=== PATIENT | female | born 1965 | race Hispanic/Latino ===

== ENCOUNTER 2024-07-05 12:35 | Inpatient (IN) | payer OTHER ==
[~2024-07-05] VITALS: Ht 167.6 cm; Wt 71.7 kg
[~2024-07-05 12:35] MED LIST: APIX5TAB PO; ASPI-888 PO; BRIM5DRO OP; BRIN15DR4 OP; LEVO75TA6 PO; LIOT5TAB11 PO; METO100T14 PO; METO10TA41 PO; NIFE-78 PO
[2024-07-05] MEDS: acetaMINOPHEN 500 MG TABLET ONE (13:20)
[2024-07-05] MEDS: acetaMINOPHEN 500 MG TABLET PO ONE (13:20)
[2024-07-05] MEDS ORDERED: acetaMINOPHEN 325 MG TAB PO ONE (13:30)
[2024-07-05 13:36] LABS: HEMATOCRIT 26.4 % (36-48); MEAN CORPUSCULAR HEMOGLOBIN 30.5 pg (27.0-33.0); MEAN CORPUSCULAR HGB CONC 31.1 g/dL (32.0-36.0); MEAN CORPUSCULAR VOLUME 98.1 fL (79-99); PLATELET COUNT (AUTO) 187 K/uL (130-400); RED BLOOD CELL COUNT(AUTO) 2.69 MIL/uL (4.00-5.50); RED CELL DISTRIBUTION WIDTH 15.2 % (11.0-15.5); WHITE BLOOD COUNT (AUTO) 13.9 K/uL (4.8-10.8)
[2024-07-05 13:39] LABS: BASOPHILS # (AUTO) 0.06 K/uL (0.00-0.20); BASOPHILS % (AUTO) 0.4 % (0.0-5.0); IMMATURE GRANULOCYTE ABSOLUTE 0.07 K/uL (0-1); LYMPHOCYTES # (AUTO) 0.5 K/uL (1.0-4.8); LYMPHOCYTES % (AUTO) 3.5 % (21.0-51.0); MONOCYTES # (AUTO) 0.6 K/uL (0.1-1.0); MONOCYTES % (AUTO) 4.3 % (3.0-13.0); NEUTROPHILS # (AUTO) 12.2 K/uL (1.8-7.7); NEUTROPHILS % (AUTO) 91.3 % (40.0-77.0)
[2024-07-05 13:44] LABS: POTASSIUM 5.8 mmol/L (3.5-5.1)
[2024-07-05 13:48] LABS: ALBUMIN 3.1 g/dL (3.5-5.0); BILIRUBIN,TOTAL 1.9 mg/dL (0.2-1.0); TOTAL PROTEIN, SERUM 7.5 g/dL (6.0-8.3)
[2024-07-05 13:50] LABS: CREATININE 10.3 mg/dL (0.5-1.0)
[2024-07-05] MEDS: ZOSYN 3.375GM +NS 50ML IV ONE (14:00)
[2024-07-05] MEDS ORDERED: VANCOMYCIN PROTOCOL PER PHARMACY IV SCH (14:00)
[2024-07-05 14:07] LABS: SARS-CoV-2, RNA, NAAT NEGATIVE SARS CoV-2 (NEGATIVE)
[2024-07-05 14:12] LABS: INFLUENZA TYPE A Negative For Type A (NEGATIVE); INFLUENZA TYPE B Negative For Type B (NEGATIVE)
[2024-07-05] MEDS: VANCOMYCIN 1.25 GM/250 ML BAG 250 ML IV ONE (14:14)
[2024-07-05] MEDS ORDERED: VANCOMYCIN PROTOCOL PER PHARMACY IV PRN (17:30)
[2024-07-05] MEDS ORDERED: acetaMINOPHEN 325 MG TAB PO PRN (17:30)
[2024-07-05] MEDS: ZOSYN 3.375GM+NS 50ML 50 ML IV SCH (18:30)
[2024-07-05 19:26] VITALS: BP 139/70; PULSE 84; RESP 17; TEMP 98.3
[2024-07-05] MEDS: FAMOTIDINE 20MG VIAL IV SCH (20:23)
[2024-07-05 20:30] VITALS: O2SAT 97
[2024-07-05] MEDS: HEParin 5,000 UNIT VIAL SQ SCH (20:33)
[2024-07-05] MEDS: acetaMINOPHEN 325 MG TAB PO PRN (21:18)
[2024-07-05] MEDS: ONDANSETRON 4MG INJ IV PRN (23:04)
[2024-07-05] MEDS: morPHINE 2 MG SYG IM ONE (23:30)
[2024-07-06] VITALS (19 sets, daily range): BP systolic 104–149; BP diastolic 59–83; PULSE 65–120; RESP 16–20; TEMP 97.7–99.6; O2SAT 94–97
[2024-07-06 06:17] LABS: BASOPHILS # (AUTO) 0.09 K/uL (0.00-0.20); BASOPHILS % (AUTO) 0.9 % (0.0-5.0); EOSINOPHILS # (AUTO) 0.02 K/uL (0.00-0.70); EOSINOPHILS % (AUTO) 0.2 % (0.0-8.0); HEMATOCRIT 27.9 % (36-48); IMMATURE GRANULOCYTE ABSOLUTE 0.04 K/uL (0-1); LYMPHOCYTES # (AUTO) 0.8 K/uL (1.0-4.8); LYMPHOCYTES % (AUTO) 7.7 % (21.0-51.0); MEAN CORPUSCULAR HEMOGLOBIN 30.9 pg (27.0-33.0); MEAN CORPUSCULAR HGB CONC 30.8 g/dL (32.0-36.0); MEAN CORPUSCULAR VOLUME 100.4 fL (79-99); MONOCYTES # (AUTO) 0.5 K/uL (0.1-1.0); MONOCYTES % (AUTO) 4.9 % (3.0-13.0); NEUTROPHILS # (AUTO) 8.5 K/uL (1.8-7.7); NEUTROPHILS % (AUTO) 85.9 % (40.0-77.0); PLATELET COUNT (AUTO) 178 K/uL (130-400); RED BLOOD CELL COUNT(AUTO) 2.78 MIL/uL (4.00-5.50); RED CELL DISTRIBUTION WIDTH 15.2 % (11.0-15.5); WHITE BLOOD COUNT (AUTO) 9.9 K/uL (4.8-10.8)
[2024-07-06 06:41] LABS: ALBUMIN 2.9 g/dL (3.5-5.0); BILIRUBIN,TOTAL 1.5 mg/dL (0.2-1.0); TOTAL PROTEIN, SERUM 7.9 g/dL (6.0-8.3)
[2024-07-06 06:59] LABS: CREATININE 11.3 mg/dL (0.5-1.0)
[2024-07-06 07:00] LABS: POTASSIUM 6.9 mmol/L (3.5-5.1)
[2024-07-06 07:28] LABS: ERYTHROCYTE SEDIMENTATION RATE 77 MM/HR (0-30)
[2024-07-06] MEDS: levoTHYROxine 75 MCG TABLET PO SCH (07:47)
[2024-07-06] MEDS: ASPIRIN 81 MG EC TAB PO SCH (08:25)
[2024-07-06] MEDS: metoPROLOL tartRATE 50 MG TAB PO SCH (08:25)
[2024-07-06] MEDS: NIFEDIPINE ER 30 MG TAB PO SCH (08:25)
[2024-07-06] MEDS: TIMOLOL OP SCH (08:26)
[2024-07-06] MEDS: BRIMONIDINE TARTRATE OP SCH (08:26)
[2024-07-06] MEDS ORDERED: LACE ASSESSMENT (SCORE > 11) MISC SCH (12:30)
[2024-07-06] MEDS: metoCLOPRAmide 10 MG/2 ML VIAL IVP PRN (12:52)
[2024-07-07] VITALS (21 sets, daily range): BP systolic 111–144; BP diastolic 54–87; PULSE 65–128; RESP 14–20; TEMP 97.5–98.8; O2SAT 97–100
[2024-07-07 05:24] LABS: BASOPHILS # (AUTO) 0.07 K/uL (0.00-0.20); EOSINOPHILS # (AUTO) 0.23 K/uL (0.00-0.70); EOSINOPHILS % (AUTO) 3.3 % (0.0-8.0); HEMATOCRIT 26.3 % (36-48); IMMATURE GRANULOCYTE ABSOLUTE 0.03 K/uL (0-1); LYMPHOCYTES # (AUTO) 0.8 K/uL (1.0-4.8); LYMPHOCYTES % (AUTO) 11.6 % (21.0-51.0); MEAN CORPUSCULAR HEMOGLOBIN 30.8 pg (27.0-33.0); MEAN CORPUSCULAR HGB CONC 31.2 g/dL (32.0-36.0); MEAN CORPUSCULAR VOLUME 98.9 fL (79-99); MONOCYTES # (AUTO) 0.6 K/uL (0.1-1.0); MONOCYTES % (AUTO) 8.3 % (3.0-13.0); NEUTROPHILS # (AUTO) 5.3 K/uL (1.8-7.7); NEUTROPHILS % (AUTO) 75.4 % (40.0-77.0); PLATELET COUNT (AUTO) 173 K/uL (130-400); RED BLOOD CELL COUNT(AUTO) 2.66 MIL/uL (4.00-5.50); RED CELL DISTRIBUTION WIDTH 15.1 % (11.0-15.5)
[2024-07-07 05:46] LABS: MAGNESIUM 1.9 mg/dL (1.80-2.40); POTASSIUM 4.3 mmol/L (3.5-5.1); VANCOMYCIN LEVEL 14.2 mcg/mL (20.0-30.0)
[2024-07-07 06:10] LABS: CREATININE 8.7 mg/dL (0.5-1.0)
[2024-07-07] MEDS: levoTHYROxine 75 MCG TABLET PO SCH (06:16)
[2024-07-07] MEDS: INSULIN humuLIN R 100 UNIT/ML 3ML SQ SCH (11:30)
[2024-07-07] MEDS: 0.9%NACL 1000ML 1,000 ML IV SCH (15:59)
[2024-07-07] MEDS ORDERED: VANCOMYCIN 500MG+NS 100ML 100 ML IV SCH (16:00)
[2024-07-07] MEDS: VANCOMYCIN 1G/250ML KIT 250 ML IV SCH (18:38)
[2024-07-07] MEDS: FAMOTIDINE 20MG VIAL IV SCH (22:36)
[2024-07-08] VITALS (7 sets, daily range): BP systolic 127–136; BP diastolic 57–71; PULSE 70–74; RESP 16–19; TEMP 98.1–98.7; O2SAT 97
[2024-07-08 04:35] LABS: BASOPHILS # (AUTO) 0.07 K/uL (0.00-0.20); BASOPHILS % (AUTO) 1.3 % (0.0-5.0); EOSINOPHILS # (AUTO) 0.22 K/uL (0.00-0.70); EOSINOPHILS % (AUTO) 4.2 % (0.0-8.0); HEMATOCRIT 25.9 % (36-48); IMMATURE GRANULOCYTE ABSOLUTE 0.03 K/uL (0-1); LYMPHOCYTES # (AUTO) 0.6 K/uL (1.0-4.8); LYMPHOCYTES % (AUTO) 12.1 % (21.0-51.0); MEAN CORPUSCULAR HEMOGLOBIN 29.6 pg (27.0-33.0); MEAN CORPUSCULAR HGB CONC 30.5 g/dL (32.0-36.0); MONOCYTES # (AUTO) 0.6 K/uL (0.1-1.0); MONOCYTES % (AUTO) 10.6 % (3.0-13.0); NEUTROPHILS # (AUTO) 3.8 K/uL (1.8-7.7); NEUTROPHILS % (AUTO) 71.2 % (40.0-77.0); PLATELET COUNT (AUTO) 188 K/uL (130-400); RED BLOOD CELL COUNT(AUTO) 2.67 MIL/uL (4.00-5.50); RED CELL DISTRIBUTION WIDTH 14.9 % (11.0-15.5); WHITE BLOOD COUNT (AUTO) 5.3 K/uL (4.8-10.8)
[2024-07-08 04:56] LABS: CREATININE 6.2 mg/dL (0.5-1.0); POTASSIUM 3.7 mmol/L (3.5-5.1)
[2024-07-08] MEDS: ZOSYN 3.375GM+NS 50ML 50 ML IV SCH (09:18)
[2024-07-09] VITALS (7 sets, daily range): BP systolic 130–154; BP diastolic 58–67; PULSE 67–77; RESP 16–20; TEMP 98–98.6; O2SAT 93–94
[2024-07-09] MEDS: guaiFENesin-DM 200/20MG 10ML PO PRN (01:22)
[2024-07-09 05:53] LABS: BASOPHILS # (AUTO) 0.08 K/uL (0.00-0.20); BASOPHILS % (AUTO) 1.4 % (0.0-5.0); EOSINOPHILS # (AUTO) 0.28 K/uL (0.00-0.70); HEMATOCRIT 26.1 % (36-48); IMMATURE GRANULOCYTE ABSOLUTE 0.04 K/uL (0-1); LYMPHOCYTES % (AUTO) 17.3 % (21.0-51.0); MEAN CORPUSCULAR HEMOGLOBIN 30.3 pg (27.0-33.0); MEAN CORPUSCULAR HGB CONC 30.7 g/dL (32.0-36.0); MEAN CORPUSCULAR VOLUME 98.9 fL (79-99); MONOCYTES # (AUTO) 0.7 K/uL (0.1-1.0); MONOCYTES % (AUTO) 13.1 % (3.0-13.0); NEUTROPHILS # (AUTO) 3.5 K/uL (1.8-7.7); NEUTROPHILS % (AUTO) 62.5 % (40.0-77.0); NUCLEATED RED BLOOD CELLS 0.5 % (0.0-0.19); PLATELET COUNT (AUTO) 176 K/uL (130-400); RED BLOOD CELL COUNT(AUTO) 2.64 MIL/uL (4.00-5.50); WHITE BLOOD COUNT (AUTO) 5.6 K/uL (4.8-10.8)
[2024-07-09 05:57] LABS: POTASSIUM 3.6 mmol/L (3.5-5.1)
[2024-07-09 06:03] LABS: CREATININE 8.3 mg/dL (0.5-1.0)
[2024-07-10] VITALS (35 sets, daily range): BP systolic 136–192; BP diastolic 56–94; PULSE 70–83; RESP 14–21; TEMP 97.5–98.8; O2SAT 94–97
[2024-07-10 05:34] LABS: BASOPHILS # (AUTO) 0.05 K/uL (0.00-0.20); BASOPHILS % (AUTO) 0.8 % (0.0-5.0); HEMATOCRIT 29.4 % (36-48); LYMPHOCYTES # (AUTO) 0.9 K/uL (1.0-4.8); LYMPHOCYTES % (AUTO) 15.7 % (21.0-51.0); MEAN CORPUSCULAR HEMOGLOBIN 30.3 pg (27.0-33.0); MEAN CORPUSCULAR HGB CONC 30.6 g/dL (32.0-36.0); MONOCYTES # (AUTO) 0.6 K/uL (0.1-1.0); MONOCYTES % (AUTO) 9.7 % (3.0-13.0); NEUTROPHILS % (AUTO) 67.1 % (40.0-77.0); PLATELET COUNT (AUTO) 209 K/uL (130-400); RED BLOOD CELL COUNT(AUTO) 2.97 MIL/uL (4.00-5.50); RED CELL DISTRIBUTION WIDTH 15.1 % (11.0-15.5)
[2024-07-10 05:49] LABS: PHOSPHORUS 4.7 mg/dL (2.5-4.9); POTASSIUM 3.7 mmol/L (3.5-5.1); VANCOMYCIN LEVEL 25.1 mcg/mL (20.0-30.0)
[2024-07-10 05:59] LABS: CREATININE 9.6 mg/dL (0.5-1.0)
[2024-07-10] MEDS ORDERED: PHENYLEPHRINE HCL 10 MG/ML 1ML VIAL IV ONE (08:04)
[2024-07-10] MEDS ORDERED: proPOFol 10 MG/ML 20ML VIAL IV ONE (08:04)
[2024-07-10] MEDS ORDERED: LIDOCAINE PF 100MG/5ML (2%) SYRINGE 5ML ONE (08:05)
[2024-07-10] MEDS: IpraTROPium/alBUTERol SULFATE 3 ML SOLUTION IH ONE ×2 (09:13→09:15)
[2024-07-10] MEDS ORDERED: IpraTROPium/alBUTERol SULFATE 3 ML SOLUTION IH PRN (10:00)
[2024-07-10 10:21] LABS: HEPATITIS B SURFACE ANTIBODY Positive (Reactive); HEPATITIS B SURFACE ANTIGEN Non-Reactive (Nonreactive)
[2024-07-10 10:22] LABS: HEPATITIS B CORE AB TOTAL Non-Reactive (Nonreactive); HEPATITIS C ANTIBODY Non-Reactive (Nonreactive)
[2024-07-10] MEDS: 0.9%NACL 1000ML 1,000 ML IV ONE (14:51)
[2024-07-10] MEDS: PEG 3350/NA SULF,BICARB,CL/KCL 4000 ML SOLN PO ONE (16:28)
[2024-07-11] VITALS (17 sets, daily range): BP systolic 139–184; BP diastolic 72–90; PULSE 68–95; RESP 15–20; TEMP 96.8–98.8; O2SAT 97–98
[2024-07-11] MEDS: ZOSYN 3.375GM+NS 50ML 50 ML IV SCH (04:08)
[2024-07-11 06:01] LABS: BASOPHILS # (AUTO) 0.09 K/uL (0.00-0.20); BASOPHILS % (AUTO) 1.3 % (0.0-5.0); EOSINOPHILS # (AUTO) 0.39 K/uL (0.00-0.70); EOSINOPHILS % (AUTO) 5.6 % (0.0-8.0); HEMATOCRIT 32.9 % (36-48); IMMATURE GRANULOCYTE ABSOLUTE 0.12 K/uL (0-1); LYMPHOCYTES # (AUTO) 1.3 K/uL (1.0-4.8); LYMPHOCYTES % (AUTO) 18.8 % (21.0-51.0); MEAN CORPUSCULAR HEMOGLOBIN 30.2 pg (27.0-33.0); MEAN CORPUSCULAR HGB CONC 31.3 g/dL (32.0-36.0); MEAN CORPUSCULAR VOLUME 96.5 fL (79-99); MONOCYTES # (AUTO) 0.8 K/uL (0.1-1.0); MONOCYTES % (AUTO) 10.8 % (3.0-13.0); NEUTROPHILS # (AUTO) 4.3 K/uL (1.8-7.7); NEUTROPHILS % (AUTO) 61.8 % (40.0-77.0); PLATELET COUNT (AUTO) 247 K/uL (130-400); RED BLOOD CELL COUNT(AUTO) 3.41 MIL/uL (4.00-5.50); RED CELL DISTRIBUTION WIDTH 14.8 % (11.0-15.5); WHITE BLOOD COUNT (AUTO) 6.9 K/uL (4.8-10.8)
[2024-07-11 06:14] LABS: CREATININE 6.5 mg/dL (0.5-1.0)
[2024-07-11] MEDS: hydrALAZine 20MG/ML VIAL IV ONE (08:46)
[2024-07-11] MEDS ORDERED: proPOFol 10 MG/ML 20ML VIAL IV ONE (11:27)
[2024-07-11] MEDS: LIDOCAINE HCL 2% VISCOUS 15 ML UDCUP PO ONE (14:01)
[2024-07-11] MEDS: FENTanyl CITRate PF 50 MCG/1 ML 2ML VIAL IVP ONE (14:01)
[2024-07-11] MEDS: MIDAZOLAM HCL 1 MG/ML 2ML VIAL IVP ONE ×2 (14:02→14:14)
[2024-07-11] MEDS: PANTOPRAZOLE 40 MG TAB DR PO SCH (14:51)
[2024-07-11] MEDS: LOPERAMIDE HCL 2 MG CAP PO PRN (20:42)
[2024-07-12] VITALS (14 sets, daily range): BP systolic 132–159; BP diastolic 65–82; PULSE 70–83; RESP 14–19; TEMP 97.2–99; O2SAT 93–98
[2024-07-12 05:55] LABS: BASOPHILS # (AUTO) 0.07 K/uL (0.00-0.20); BASOPHILS % (AUTO) 0.8 % (0.0-5.0); EOSINOPHILS # (AUTO) 0.37 K/uL (0.00-0.70); EOSINOPHILS % (AUTO) 4.2 % (0.0-8.0); HEMATOCRIT 32.2 % (36-48); IMMATURE GRANULOCYTE ABSOLUTE 0.12 K/uL (0-1); LYMPHOCYTES # (AUTO) 1.4 K/uL (1.0-4.8); LYMPHOCYTES % (AUTO) 15.8 % (21.0-51.0); MEAN CORPUSCULAR HEMOGLOBIN 29.6 pg (27.0-33.0); MEAN CORPUSCULAR HGB CONC 30.4 g/dL (32.0-36.0); MEAN CORPUSCULAR VOLUME 97.3 fL (79-99); MONOCYTES # (AUTO) 0.8 K/uL (0.1-1.0); NEUTROPHILS # (AUTO) 6.1 K/uL (1.8-7.7); NEUTROPHILS % (AUTO) 68.8 % (40.0-77.0); PLATELET COUNT (AUTO) 275 K/uL (130-400); RED BLOOD CELL COUNT(AUTO) 3.31 MIL/uL (4.00-5.50); RED CELL DISTRIBUTION WIDTH 15.1 % (11.0-15.5); WHITE BLOOD COUNT (AUTO) 8.8 K/uL (4.8-10.8)
[2024-07-12 06:17] LABS: ALBUMIN 2.6 g/dL (3.5-5.0); BILIRUBIN,TOTAL 0.6 mg/dL (0.2-1.0); TOTAL PROTEIN, SERUM 7.5 g/dL (6.0-8.3)
[2024-07-12 06:23] LABS: CREATININE 8.6 mg/dL (0.5-1.0); VANCOMYCIN LEVEL 31.3 mcg/mL (20.0-30.0)
[2024-07-12] MEDS ORDERED: VANCOMYCIN 750MG VIAL IVPB SCH (16:00)
[2024-07-12] MEDS: NAFCILLIN 2GM+ NS 100ML 100 ML IV SCH ×2 (16:26→21:58)
[2024-07-13] VITALS (26 sets, daily range): BP systolic 131–198; BP diastolic 74–95; PULSE 68–83; RESP 14–20; TEMP 97.1–98.7; O2SAT 96–99
[2024-07-13 05:08] LABS: BASOPHILS # (AUTO) 0.11 K/uL (0.00-0.20); BASOPHILS % (AUTO) 0.9 % (0.0-5.0); EOSINOPHILS # (AUTO) 0.37 K/uL (0.00-0.70); EOSINOPHILS % (AUTO) 3.2 % (0.0-8.0); HEMATOCRIT 29.9 % (36-48); IMMATURE GRANULOCYTE ABSOLUTE 0.12 K/uL (0-1); LYMPHOCYTES # (AUTO) 1.7 K/uL (1.0-4.8); LYMPHOCYTES % (AUTO) 14.3 % (21.0-51.0); MEAN CORPUSCULAR HEMOGLOBIN 29.7 pg (27.0-33.0); MEAN CORPUSCULAR HGB CONC 31.1 g/dL (32.0-36.0); MEAN CORPUSCULAR VOLUME 95.5 fL (79-99); MONOCYTES # (AUTO) 0.7 K/uL (0.1-1.0); MONOCYTES % (AUTO) 5.9 % (3.0-13.0); NEUTROPHILS # (AUTO) 8.7 K/uL (1.8-7.7); NEUTROPHILS % (AUTO) 74.7 % (40.0-77.0); PLATELET COUNT (AUTO) 325 K/uL (130-400); RED BLOOD CELL COUNT(AUTO) 3.13 MIL/uL (4.00-5.50); RED CELL DISTRIBUTION WIDTH 15.2 % (11.0-15.5); WHITE BLOOD COUNT (AUTO) 11.6 K/uL (4.8-10.8)
[2024-07-13 05:27] LABS: INR 1.01 (0.85-1.15); PROTHROMBIN TIME 10.9 SEC (9.6-11.6)
[2024-07-13 05:28] LABS: ALBUMIN 2.7 g/dL (3.5-5.0); BILIRUBIN,TOTAL 0.6 mg/dL (0.2-1.0); MAGNESIUM 2.2 mg/dL (1.80-2.40); POTASSIUM 4.3 mmol/L (3.5-5.1); TOTAL PROTEIN, SERUM 7.6 g/dL (6.0-8.3)
[2024-07-13 05:29] LABS: CREATININE 10.6 mg/dL (0.5-1.0)
[2024-07-13] MEDS ORDERED: LIDOCAINE HCL 1% 20 ML VIAL ONE (11:56)
[2024-07-13] MEDS ORDERED: HEParin-NS 1,000 UNIT/500 ML 500 ML IV ONE (11:57)
[2024-07-13] MEDS ORDERED: HEParin 1,000 UNIT VIAL ONE (11:57)
[2024-07-13] MEDS: hydrALAZine 20MG/ML VIAL IV ONE (16:22)
[2024-07-13] MEDS ORDERED: 0.9% NACL 250ML 250 ML IV SCH (18:30)
[2024-07-14] VITALS (21 sets, daily range): BP systolic 98–176; BP diastolic 48–84; PULSE 61–72; RESP 14–20; TEMP 98.2–98.8; O2SAT 95–97
[2024-07-14] MEDS: hydrALAZine 20MG/ML VIAL IV PRN (03:25)
[2024-07-14] MEDS ORDERED: hydrALAZine 20MG/ML VIAL IV PRN (03:30)
[2024-07-14 05:06] LABS: BASOPHILS # (AUTO) 0.08 K/uL (0.00-0.20); BASOPHILS % (AUTO) 1.4 % (0.0-5.0); EOSINOPHILS # (AUTO) 0.25 K/uL (0.00-0.70); EOSINOPHILS % (AUTO) 4.2 % (0.0-8.0); HEMATOCRIT 31.5 % (36-48); IMMATURE GRANULOCYTE ABSOLUTE 0.07 K/uL (0-1); LYMPHOCYTES # (AUTO) 1.3 K/uL (1.0-4.8); LYMPHOCYTES % (AUTO) 21.5 % (21.0-51.0); MEAN CORPUSCULAR HEMOGLOBIN 30.1 pg (27.0-33.0); MEAN CORPUSCULAR HGB CONC 31.4 g/dL (32.0-36.0); MEAN CORPUSCULAR VOLUME 95.7 fL (79-99); MONOCYTES # (AUTO) 0.5 K/uL (0.1-1.0); MONOCYTES % (AUTO) 8.6 % (3.0-13.0); NEUTROPHILS # (AUTO) 3.7 K/uL (1.8-7.7); NEUTROPHILS % (AUTO) 63.1 % (40.0-77.0); PLATELET COUNT (AUTO) 312 K/uL (130-400); RED BLOOD CELL COUNT(AUTO) 3.29 MIL/uL (4.00-5.50); WHITE BLOOD COUNT (AUTO) 5.9 K/uL (4.8-10.8)
[2024-07-14 05:32] LABS: ALBUMIN 2.5 g/dL (3.5-5.0); BILIRUBIN,TOTAL 0.9 mg/dL (0.2-1.0); MAGNESIUM 2.2 mg/dL (1.80-2.40); POTASSIUM 3.8 mmol/L (3.5-5.1); TOTAL PROTEIN, SERUM 7.5 g/dL (6.0-8.3); VANCOMYCIN LEVEL 23.6 mcg/mL (20.0-30.0)
[2024-07-14 05:36] LABS: CREATININE 8.9 mg/dL (0.5-1.0)
[2024-07-14] MEDS ORDERED: HEParin 5,000 UNIT VIAL SQ SCH (09:00)
[2024-07-14] MEDS: HEParin 5,000 UNIT VIAL IRRIG SCH (11:22)
[2024-07-15] VITALS (8 sets, daily range): BP systolic 133–162; BP diastolic 66–80; PULSE 66–76; RESP 16–18; TEMP 97.6–99; O2SAT 98
[2024-07-15 05:47] LABS: BASOPHILS # (AUTO) 0.08 K/uL (0.00-0.20); BASOPHILS % (AUTO) 1.2 % (0.0-5.0); EOSINOPHILS # (AUTO) 0.28 K/uL (0.00-0.70); EOSINOPHILS % (AUTO) 4.2 % (0.0-8.0); HEMATOCRIT 35.1 % (36-48); IMMATURE GRANULOCYTE ABSOLUTE 0.05 K/uL (0-1); LYMPHOCYTES # (AUTO) 1.6 K/uL (1.0-4.8); LYMPHOCYTES % (AUTO) 23.8 % (21.0-51.0); MEAN CORPUSCULAR HEMOGLOBIN 30.7 pg (27.0-33.0); MEAN CORPUSCULAR HGB CONC 30.5 g/dL (32.0-36.0); MEAN CORPUSCULAR VOLUME 100.6 fL (79-99); MONOCYTES # (AUTO) 0.6 K/uL (0.1-1.0); MONOCYTES % (AUTO) 8.6 % (3.0-13.0); NEUTROPHILS # (AUTO) 4.1 K/uL (1.8-7.7); NEUTROPHILS % (AUTO) 61.4 % (40.0-77.0); PLATELET COUNT (AUTO) 399 K/uL (130-400); RED BLOOD CELL COUNT(AUTO) 3.49 MIL/uL (4.00-5.50); RED CELL DISTRIBUTION WIDTH 15.3 % (11.0-15.5); WHITE BLOOD COUNT (AUTO) 6.6 K/uL (4.8-10.8)
[2024-07-15 06:07] LABS: ALBUMIN 2.9 g/dL (3.5-5.0); BILIRUBIN,TOTAL 0.9 mg/dL (0.2-1.0); MAGNESIUM 2.3 mg/dL (1.80-2.40); POTASSIUM 4.6 mmol/L (3.5-5.1); TOTAL PROTEIN, SERUM 8.4 g/dL (6.0-8.3)
[2024-07-15 06:26] LABS: CREATININE 8.4 mg/dL (0.5-1.0)
[2024-07-16] VITALS (7 sets, daily range): BP systolic 124–191; BP diastolic 68–94; PULSE 68–76; RESP 16–20; TEMP 97.6–98.8; O2SAT 98
[2024-07-16 05:59] LABS: BASOPHILS % (AUTO) 1.6 % (0.0-5.0); EOSINOPHILS # (AUTO) 0.35 K/uL (0.00-0.70); EOSINOPHILS % (AUTO) 5.6 % (0.0-8.0); HEMATOCRIT 34.8 % (36-48); IMMATURE GRANULOCYTE ABSOLUTE 0.03 K/uL (0-1); LYMPHOCYTES # (AUTO) 1.6 K/uL (1.0-4.8); LYMPHOCYTES % (AUTO) 25.7 % (21.0-51.0); MEAN CORPUSCULAR HEMOGLOBIN 29.8 pg (27.0-33.0); MEAN CORPUSCULAR HGB CONC 30.2 g/dL (32.0-36.0); MEAN CORPUSCULAR VOLUME 98.9 fL (79-99); MONOCYTES # (AUTO) 0.5 K/uL (0.1-1.0); MONOCYTES % (AUTO) 8.3 % (3.0-13.0); NEUTROPHILS # (AUTO) 3.7 K/uL (1.8-7.7); NEUTROPHILS % (AUTO) 58.3 % (40.0-77.0); PLATELET COUNT (AUTO) 352 K/uL (130-400); RED BLOOD CELL COUNT(AUTO) 3.52 MIL/uL (4.00-5.50); RED CELL DISTRIBUTION WIDTH 14.9 % (11.0-15.5); WHITE BLOOD COUNT (AUTO) 6.3 K/uL (4.8-10.8)
[2024-07-16 06:32] LABS: ALBUMIN 2.8 g/dL (3.5-5.0); BILIRUBIN,TOTAL 0.6 mg/dL (0.2-1.0); MAGNESIUM 2.4 mg/dL (1.80-2.40); POTASSIUM 4.6 mmol/L (3.5-5.1)
[2024-07-16 06:34] LABS: CREATININE 10.3 mg/dL (0.5-1.0)
== END 2024-07-16 23:31 | disposition short-term general hospital (02) | DRG 871 ==
LOC: EDH 12:35 → EDHIP 17:27 → 3AH 19:38
PROVIDERS: ADMIT Internal Medicine; ATTEND Internal Medicine
PROC: 0DB78ZX Excision of Stomach, Pylorus, Via Natural or Artificial Opening Endoscopic, Diagnostic (ICD-10-PCS; 2024-07-10)
PROC: B24BZZ4 Ultrasonography of Heart with Aorta, Transesophageal (ICD-10-PCS; principal; 2024-07-11)
PROC: 0DJD8ZZ Inspection of Lower Intestinal Tract, Via Natural or Artificial Opening Endoscopic (ICD-10-PCS; 2024-07-11)
PROC: 02H633Z Insertion of Infusion Device into Right Atrium, Percutaneous Approach (ICD-10-PCS; 2024-07-13)
PROC: B5181ZA Fluoroscopy of Superior Vena Cava using Low Osmolar Contrast, Guidance (ICD-10-PCS; 2024-07-13)
PROC: B548ZZA Ultrasonography of Superior Vena Cava, Guidance (ICD-10-PCS; 2024-07-13)
DX: A41.01 Sepsis due to Methicillin susceptible Staphylococcus aureus (principal); J18.9 Pneumonia, unspecified organism; N18.6 End stage renal disease; T82.49XA Other complication of vascular dialysis catheter, initial encounter; I12.0 Hypertensive chronic kidney disease with stage 5 chronic kidney disease or end stage renal disease; Z99.2 Dependence on renal dialysis; E11.22 Type 2 diabetes mellitus with diabetic chronic kidney disease; E11.65 Type 2 diabetes mellitus with hyperglycemia; H54.8 Legal blindness, as defined in USA; E87.5 Hyperkalemia; I48.0 Paroxysmal atrial fibrillation; D63.1 Anemia in chronic kidney disease; K31.84 Gastroparesis; E11.43 Type 2 diabetes mellitus with diabetic autonomic (poly)neuropathy; I25.10 Atherosclerotic heart disease of native coronary artery without angina pectoris; Y71.2 Prosthetic and other implants, materials and accessory cardiovascular devices associated with adverse incidents; E89.0 Postprocedural hypothyroidism; Z82.49 Family history of ischemic heart disease and other diseases of the circulatory system; Z85.038 Personal history of other malignant neoplasm of large intestine; Z88.5 Allergy status to narcotic agent; Z79.899 Other long term (current) drug therapy; K29.70 Gastritis, unspecified, without bleeding
CPT/HCPCS: 36415; 36556; 43239; 45378; 71045; 71250; 77001; 80048; 80053; 80202; 82270; 82948; 83605; 83735; 84100; 84145; 85025; 85610; 85651; 86704; 86706; 86803; 87040; 87086; 87186; 87324; 87340; 87635; 87804; 88305; 88312; 90935; 93306; 93312; 93325; 93356; 94640; A4606; C1752; G0378; J0360; J1644; J1815; J2001; J2250; J2270; J2371; J2405; J2543; J2704; J2765; J3010; J3370; J3490; J7030; 3370; A4215; A4222; A4223; A4620; A7002; C1894